=== PATIENT | male | born 1940 | race Caucasian/White ===

== ENCOUNTER → 2016-06-05 | Outpatient (CLI) | payer MEDICARE, OTHER ==
[~2016-06-05] MED LIST: BAYER CHEWABLE81 MG PO; CALCIUM MAGNESIUM ZI; CHROMIUM PICO400 MCG PO; CITRACAL + D CA1 TA1 PO; DHEA50 M1 PO; DIOVAN HCT 160-1 TAB; EXFORGE 10-3201 TAB PO; FERROUS GLUCON324 MG PO; FINASTERIDE5 M1 PO; GARLIC1 TAB PO; GINKGO60 MG PO; GINSENG100 M1 PO; GLUCOPHAGE500 M1 PO; GLUCOSAMINE & C1 CAP PO; HYDRALAZINE HCL25 MG PO; INDOMETHACIN50 MG PO; JANUMET 50-501 UDTAB PO; LIPITOR; LOTREL 10/20 MG1 CAP; MULTI VITAMIN1 EACH PO; POTASSIUM99 M1 PO; PREVACID; PYCNOGENOL PO; SAW PALMETTO CA1 CAP PO; SELENIUM200 MC2 PO; TOPROL XL; TRICOR; VISION VITAMIN1 EACH PO; VITAMIN C500 M1 PO; VITAMIN D-32000 UNI2 PO; VITAMIN E100 UNIT PO; ZINC50 M1 PO; ZYLOPRIM100 MG DOB
--- NOTE | ~2016-06-05 | PFT ---
[id number] [facility] [address] [place], [place] [address] [id number] O MR#: [id number] NAME: COURT HECTOR ROOM: SEX: M STUDY DATE/TIME: : 1940 AGE: 76 STUDY DESCRIPTION: Attending Physician: Kelby Carias D.O. Referring Physician: Kelby Carias D.O. Primary Care Physician: Kelby Carias D.O. PULMONARY DIAGNOSTIC REPORT EXAM Pulmonary function test. FINDINGS Spirometry suggests a restrictive defect. No significant response to bronchodilators. Flow volume loop suggest a restrictive defect. Lung volumes confirm a restrictive defect with a total lung capacity of 68%. 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 Dictated by... Romana Jacobson/lien TD: 06/12/2016 12:53 JOB #: [id number] PULMONARY DIAGNOSTIC REPORT
[2016-06-05 11:35] LABS: ARTERIAL BLOOD GAS CARBOXY HB 1.4 %sat (0.0-9.0); ARTERIAL BLOOD GAS HCO3 30.7 mmol/L; ARTERIAL BLOOD GAS MET HB 1.1 %sat (0.0-2.0); ARTERIAL BLOOD GAS PCO2 36.7 mmHg (35.0-45.0); ARTERIAL BLOOD GAS PO2 82.5 mmHg (80.0-100)
[2016-06-05 11:36] LABS: ARTERIAL BLOOD GAS ALLEN TEST N; ARTERIAL BLOOD GAS ART SITE LEFT RADIAL; ARTERIAL DRAW? YES
== END | disposition home or self-care (01) ==
LOC: CRC 10:44
PROVIDERS: Family Medicine
DX: R09.02 Hypoxemia (principal)
CPT/HCPCS: 36600; 82803; 94060; 94726; 94729